=== PATIENT | male | born 1975 | race Caucasian/White ===

== ENCOUNTER 2016-08-04 22:08 | Emergency (ER) | payer BC, OTHER ==
[2016-08-04] MEDS ORDERED: Ketorolac 60 MG/2 ML SDV IM ONE (22:34)
--- NOTE | 2016-08-04 22:44 | EDM.PDOC ---
ED UPPER BACK/NECK PAIN/INJURY - General Chief Complaint: Back Pain or Injury Stated Complaint: SORE THROAT & PULLED MUSCLE IN BACK Time Seen by Provider: 08/04/16 22:23 Source of Information: Reports: Patient History Limitations: Reports: No limitations - History of Present Illness INITIAL COMMENTS - FREE TEXT/NARRATIVE: Patient states that his left upper back pain has been ongoing for the past 4-5 months. He denies trauma or injury to the back. 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 The pain is made worse by lifting and is relieved by rest. Onset is with twisting activities. He denies numbness or tingling in his upper extremity. The patient is also c/o a dry scratchy sore throat. This has been going on for 3 days. He has clear drainage from his nose for the past few days as well with a dry cough. He denies fever, chills, SOB, and CP. Symptom Onset Date: 03/06/16 Timing/Duration: Reports: Intermittent Location: Reports: upper Quality: Reports: Ache, Sharp, Stabbing Severity: mild Place of Occurrence: work Improves with: Reports: Rest Associated Symptoms: Reports: Denies symptoms Other Treatments REAL ESTATE ATTORNEY: None - Related Data Allergies/ADRs: Allergies Allergy/AdvReac Type Severity Reaction Status Date / Time No Known Drug Allergies Allergy Other Verified 07/06/15 21:12 Home Meds: Home Meds Lisinopril [Lisinopril] 20 mg PO DAILY 07/27/13 [History] OXcarbazepine [Oxcarbazepine] 600 mg PO BID 07/27/13 [History] Phenytoin Sodium Extended [Dilantin] 200 mg PO BEDTIME 07/27/13 [History] atorvaSTATin Calcium [Atorvastatin Calcium] 20 mg PO DAILY 07/27/13 [History] tiZANidine [Zanaflex] 4 mg PO Q6H PRN #40 tablet MDD 4 tablets/ 16mg 08/04/16 [ Rx] Past Medical History Cardiovascular History: Reports: High cholesterol, Hypertension Genitourinary History: Reports: Renal calculus Neurological History: Reports: Seizure, Other (see below) Other Neuro History: small brain tumor right tenriism area. - Past Surgical History Neurological Surgical History: Reports: Other (see below) Other Neurological Surgeries/Procedures: right craineotomy. Musculoskeletal Surgical History: Reports: Other (see below) Other Musculoskeletal Surgeries/Procedures:: ACL knee repair Social & Family History - Tobacco Use Smoking Status *Q: Never Smoker - Alcohol Use Days Per Week of Alcohol Use: 2 Number of Drinks Per Day: 2 Total Drinks Per Week: 4 - Recreational Drug Use Recreational Drug Use: No ED ROS GENERAL - Review of Systems Review Of Systems: ROS reveals no pertinent complaints other than HPI. Constitutional: Reports: no symptoms HEENT: Reports: Throat pain, Other (clear nasal drainage) Respiratory: Reports: no symptoms Cardiovascular: Reports: No symptoms Endocrine: Reports: no symptoms GI/Abdominal: Reports: No symptoms : Reports: no symptoms Musculoskeletal: Reports: back pain, muscle pain Skin: Reports: no symptoms Neurological: Reports: no symptoms Psychiatric: Reports: No symptoms Hematologic/Lymphatic: Reports: no symptoms Immunologic: Reports: no symptoms ED EXAM, UPPER BACK/NECK PAIN - Physical Exam Exam: See Below Exam Limited By: No limitations General Appearance: alert, WD/WN, no apparent distress Ears Exam: normal external exam, normal canal, hearing grossly normal, normal TMs Nose Exam: normal inspection, normal mucousa, no blood, clear rhinorrhea Throat/Mouth Exam: Normal inspection, Normal lips, Normal teeth, Normal gums, Normal oropharynx, Normal voice, No airway compromise Head Exam: atraumatic, normocephalic Neck Exam: non-tender, full range of motion, normal alignment, normal inspection Cardiovascular/Respiratory: regular rate, rhythm GI/Abdominal: normal bowel sounds, soft, non tender Extremities: normal inspection, normal range of motion, non-tender, no pedal edema, normal capillary refill Neurologic: no motor/sensory deficits, alert, normal mood/affect, oriented x 3 DTR: 2+: bicep (R), bicep (L), tricep (R), tricep (L) Psychiatric: normal affect, normal mood Skin Exam: Normal color, Warm/dry Lymphatic: no adenopathy Course - Orders/Labs/Meds Orders: Active Orders 24 hr Category Date Time Status Orphenadrine [Norflex] Med 08/04/16 22:45 Ordered 60 mg IM Q12H Medication Orders Orphenadrine Citrate (Norflex) 60 mg IM Q12H JERMAIN Meds: Medications Generic Name Dose Route Start Last Admin Trade Name Freq PRN Reason Stop Dose Admin Orphenadrine Citrate 60 mg 08/04/16 22:45 Norflex IM Q12H JERMAIN Discontinued Medications Generic Name Dose Route Start Last Admin Trade Name Bjornq PRN Reason Stop Dose Admin Ketorolac Tromethamine 60 mg 08/04/16 22:34 Toradol IM 08/04/16 22:35 ONETIME ONE Departure - Departure Time of Disposition: 23:00 Disposition: Home, Self-Care 01 Condition: good Clinical Impression: Upper back pain on left side Prescriptions: tiZANidine [Zanaflex] 4 mg PO Q6H PRN #40 tablet MDD 4 tablets/ 16mg PRN Reason: Muscle Spasm Instructions: Back Exercises, Thoracic Strain, [id number] Referrals: Clarita Inman [employer]INE [employer]TER [Primary Care Provider] - Additional Instructions: Please follow up with your primary care provider for discussion and referral to physical therapy for your chronic upper back pain. - My Orders Last 24 Hours: My Active Orders 08/04/16 22:45 Orphenadrine [Norflex] 60 mg IM Q12H - Assessment/Plan Last 24 Hours: My Active Orders 08/04/16 22:45 Orphenadrine [Norflex] 60 mg IM Q12H Assessment:: Left upper back pain Plan: Tizanidine for muscle relaxation as stated on prescription instructions. Follow up with primary care provider for referral to physical therapy.
[2016-08-05 00:18] VITALS: BP 128/88
== END 2016-08-04 23:09 | disposition home or self-care (01) ==
LOC: VM.ED 22:08
DX: M54.6 Pain in thoracic spine (principal); E78.00 Pure hypercholesterolemia, unspecified; I10 Essential (primary) hypertension; Z79.899 Other long term (current) drug therapy
CPT/HCPCS: 96372; 99283; J1885; J2360

== ENCOUNTER 2017-06-23 12:01 | Emergency (ER) | payer OTHER ==
[2017-06-23] MEDS ORDERED: Sodium Chloride 0.9% 10 ML Syringe FLUSH PRN (12:07)
--- NOTE | 2017-06-23 12:21 | EDM.PDOC ---
ED HPI GENERAL MEDICAL PROBLEM - General Chief Complaint: Syncope Stated Complaint: Syncope; Possible Seizure Time Seen by Provider: 06/23/17 12:02 Source of Information: Reports: Patient, EMS Notes Reviewed, RN, RN Notes Reviewed History Limitations: Reports: No Limitations - History of Present Illness INITIAL COMMENTS - FREE TEXT/NARRATIVE: Patient is brought to the emergency room at [facility] via EMS after he had a syncopal episode while he was eating dinner at work today. The patient does have a history of seizures. The patient's last seizure was over a year ago. The patient states that he forgot to take his morning medication today. It is unclear whether the patient had a seizure or not this morning. According to EMS the patient was found slumped over where he was sitting eating dinner. The patient denies any pain. No headache. The patient denies any dizziness. The patient states that he remembers most of what happened. The patient denies any chest pain. No shortness of breath. The patient denies any dizziness. No numbness tingling or paresthesia of any extremity. Patient is taking Dilantin and Trileptal daily for seizures. He is s/p right temporal craniotomy for tumor resection on 05/08/[address] Fahad Ashley. 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 Onset: Today, Sudden Onset Date: 06/23/17 Onset Time: 11:40 - Related Data Allergies Allergy/AdvReac Type Severity Reaction Status Date / Time No Known Drug Allergies Allergy Other Verified 06/23/17 12:46 Home Meds: Home Meds Lisinopril [Lisinopril] 20 mg PO DAILY 07/27/13 [History] OXcarbazepine [Oxcarbazepine] 600 mg PO BID 07/27/13 [History] Phenytoin Sodium Extended [Dilantin] 200 mg PO BEDTIME 07/27/13 [History] atorvaSTATin Calcium [Atorvastatin Calcium] 20 mg PO DAILY 07/27/13 [History] Past Medical History Cardiovascular History: Reports: High Cholesterol, Hypertension Genitourinary History: Reports: Renal Calculus Neurological History: Reports: Seizure, Other (See Below) Other Neuro History: small brain tumor right muslim area. - Past Surgical History Neurological Surgical History: Reports: Other (See Below) Musculoskeletal Surgical History: Reports: Other (See Below) Social & Family History - Tobacco Use Smoking Status *Q: Never Smoker - Alcohol Use Days Per Week of Alcohol Use: 2 Number of Drinks Per Day: 2 Total Drinks Per Week: 4 - Recreational Drug Use Recreational Drug Use: No ED ROS GENERAL - Review of Systems Review Of Systems: See Below Constitutional: Denies: Fever, Chills, Weakness Respiratory: Denies: Shortness of Breath, Cough Cardiovascular: Denies: Chest Pain, Palpitations GI/Abdominal: Denies: Abdominal Pain, Nausea, Vomiting Skin: Reports: No Symptoms Neurological: Reports: No Symptoms, Syncope. Denies: Confusion, Dizziness, Headache, Numbness, Paresthesia, Tingling - Physical Exam Exam: See Below Exam Limited By: No Limitations General Appearance: Alert, No Apparent Distress, Obese Eye Exam: Bilateral Eye: EOMI, Normal Inspection, PERRL Head Exam: Atraumatic, Normocephalic Neck: Supple Respiratory/Chest: No Respiratory Distress, Lungs Clear, Normal Breath Sounds Cardiovascular: Normal Peripheral Pulses, Regular Rate, Rhythm GI/Abdominal: Normal Bowel Sounds, Soft, Non-Tender Neuro Exam (Abbreviated): Alert, Oriented, Normal Cognition, No Motor/Sensory Deficits Skin Exam: Warm, Dry, Intact, Normal Color EKG INTERPRETATION EKG Date: 06/23/17 Time: 12:14 Rhythm: NSR Rate (Beats/Min): 75 [place]: Normal P-Wave: Present QRS: Normal ST-T: Normal QT: Normal ID/PQ Interval: 0.16 Comparison: NA - No Prior EKG EKG Interpretation Comments: 1. Sinus Rhythm 2. Probable inferior IA, indeterminate age with posterior extension Course - Vital Signs Last Recorded V/S: Last Vital Signs Temp 35.5 C 06/23/17 12:01 Pulse 73 06/23/17 12:01 Resp 16 06/23/17 12:01 BP 134/84 06/23/17 12:01 Pulse Ox 95 06/23/17 12:01 - Orders/Labs/Meds Orders: Active Orders 24 hr Category Date Time Status EKG 12 Lead [EKG Documentation Completion] [RC] STAT Care 06/23/17 12:08 Active Head wo Cont [CT] Stat Exams 06/23/17 12:07 Taken DRUG SCREEN, URINE [URCHEM] Stat Lab 06/23/17 12:09 Uncollected OXCARBAZEPINE METABOLITE [REF] Stat Lab 06/23/17 13:06 Received UA W/MICROSCOPIC [URIN] Stat Lab 06/23/17 12:09 Uncollected Sodium Chloride 0.9% [Saline Flush] Med 06/23/17 12:07 Active 10 ml FLUSH ASDIRECTED PRN Peripheral IV Insertion Adult [OM.PC] Routine Oth 06/23/17 12:07 Ordered Medication Orders Sodium Chloride (Saline Flush) 10 ml FLUSH ASDIRECTED PRN PRN Reason: Keep Vein Open Labs: Laboratory Tests 06/23/17 06/23/17 Range/Units 12:19 12:19 WBC 4.5 (4.0-10.0) x10^3/uL RBC 4.70 (4.5-6.0) x10^6/uL Hgb 14.5 (14.0-18.0) g/dL Hct 44.1 (40.0-52.0) % MCV 93.8 H (78.0-93.0) fL MCH 30.9 (26.0-32.0) pg MCHC 32.9 (32.0-36.0) g/dL RDW Coeff of [place] 13.1 (10.0-15.0) % Plt Count 151 (130-400) x10^3/uL Neut % (Auto) 59.3 (50.0-80.0) % Lymph % (Auto) 33.2 (25.0-50.0) % [place] % (Auto) 6.9 (2.0-11.0) % Eos % (Auto) 0.4 (0.0-4.0) % Baso % (Auto) 0.2 (0.2-1.2) % Sodium 140 (136-145) mmol/L Potassium 3.8 (3.5-5.1) mmol/L Chloride 103 (98-107) mmol/L Carbon Dioxide 28 (21-32) mmol/L BUN 17 (7-18) mg/dL Creatinine 0.9 (0.70-1.30) mg/dL Est Cr Clr Drug Dosing 104.50 mL/min Estimated GFR (MDRD) > 60 Glucose 127 H (74-106) mg/dL Calcium 8.4 L (8.5-10.1) mg/dL Magnesium 1.6 L (1.8-2.4) mg/dL Creatine Kinase 168 (39-308) U/L Creatine Kinase Index 1.5 (0.0-4.0) % CK-MB (CK-2) 2.6 (0.0-3.6) ng/mL Troponin I < 0.017 (<=0.056) ng/mL Phenytoin 2 L (10-20) ug/mL Meds: Medications Generic Name Dose Route Start Last Admin Trade Name Freq PRN Reason Stop Dose Admin Sodium Chloride 10 ml 06/23/17 12:07 Saline Flush FLUSH ASDIRECTED PRN Keep Vein Open - Radiology Interpretation Free Text/Narrative:: CT Head w/o contrast: Interval right craniotomy with presumed postsurgical changes in the right temporal lobe; no definite acute findings. See scanned report in EMR CT Results Date: 06/23/17 CT Results Time: 12:49 Departure - Departure Time of Disposition: 13:17 Disposition: Home, Self-Care 01 Condition: Good Clinical Impression: Seizure disorder, S/P craniotomy Syncope Qualifiers: Syncope type: unspecified Qualified Code(s): R55 - Syncope and collapse - Discharge Information Instructions: Syncope, [id number], Epilepsy Referrals: Clarita Inman [employer]IL[employer] [Primary Care Provider] - Forms: ED Department Discharge Additional Instructions: 1. Stay well hydrated and rest today 2. Continue taking your home medications the same 3. Have family stay with your today/tomorrow 4. Keep your appointment with Neurology tomorrow 5. Call with any questions/concerns - Problem List Review Problem List Initiated/Reviewed/Updated: Yes - My Orders Last 24 Hours: My Active Orders 06/23/17 12:07 Head wo Cont [CT] Stat Sodium Chloride 0.9% [Saline Flush] 10 ml FLUSH ASDIRECTED PRN Peripheral IV Insertion Adult [OM.PC] Routine 06/23/17 12:08 EKG 12 Lead [EKG Documentation Completion] [RC] STAT 06/23/17 12:09 DRUG SCREEN, URINE [URCHEM] Stat UA W/MICROSCOPIC [URIN] Stat 06/23/17 13:06 OXCARBAZEPINE METABOLITE [REF] Stat - Assessment/Plan Last 24 Hours: My Active Orders 06/23/17 12:07 Head wo Cont [CT] Stat Sodium Chloride 0.9% [Saline Flush] 10 ml FLUSH ASDIRECTED PRN Peripheral IV Insertion Adult [OM.PC] Routine 06/23/17 12:08 EKG 12 Lead [EKG Documentation Completion] [RC] STAT 06/23/17 12:09 DRUG SCREEN, URINE [URCHEM] Stat UA W/MICROSCOPIC [URIN] Stat 06/23/17 13:06 OXCARBAZEPINE METABOLITE [REF] Stat Plan: Labs and CT scan discussed with patient. Offered observation admission overnight , but patient declined. Patient would like to go home. He states his brother will stay with home overnight and take him to his Neurology appt tomorrow at [facility].
[2017-06-23 12:34] VITALS: BP 134/84
[2017-06-23 12:55] LABS: CHLORIDE,CL 103 mmol/L (98-107); SODIUM,NA 140 mmol/L (136-145)
== END 2017-06-23 13:40 | disposition home or self-care (01) ==
LOC: VM.ED 12:01
DX: G40.909 Epilepsy, unspecified, not intractable, without status epilepticus (principal); I10 Essential (primary) hypertension; Z98.890 Other specified postprocedural states; E78.00 Pure hypercholesterolemia, unspecified; Z79.899 Other long term (current) drug therapy
CPT/HCPCS: 36415; 70450; 80048; 80183; 80185; 82550; 82553; 83735; 84484; 85025; 93005; 99285

== ENCOUNTER 2019-11-27 06:54 | Emergency (ER) | payer OTHER ==
[2019-11-27 06:58] VITALS: BP 131/95; PULSE 82
--- NOTE | 2019-11-28 02:22 | EDM.PDOC ---
ED HPI GENERAL MEDICAL PROBLEM - General Chief Complaint: Respiratory Problem Stated Complaint: short of breath Time Seen by Provider: 11/27/19 07:05 Source of Information: Reports: Patient History Limitations: Reports: No Limitations - History of Present Illness INITIAL COMMENTS - FREE TEXT/NARRATIVE: Pt. presents to ER with concerns of covid 19. Pt. states that he has been ex periencing very mild intermittent episodes of shortness of breath. He has had a mild cough. His primary complaint is that of sore throat. Denies any recent travel. Denies any chest pain. He is not short of breath when seen in ER. No nausea, vomiting, or diarrhea. No abdominal pain. Onset Date: 11/27/19 Location: Reports: Neck, Chest, Generalized - Related Data Allergies Allergy/AdvReac Type Severity Reaction Status Date / Time No Known Drug Allergies Allergy Other Verified 11/27/19 06:55 Home Meds: Home Meds Lisinopril 20 mg PO DAILY 07/27/13 [History] OXcarbazepine [Oxcarbazepine] 600 mg PO BID 07/27/13 [History] Phenytoin Sodium Extended [Dilantin] 200 mg PO BEDTIME 07/27/13 [History] atorvaSTATin Calcium [Atorvastatin Calcium] 20 mg PO DAILY 07/27/13 [History] Past Medical History Cardiovascular History: Reports: High Cholesterol, Hypertension Genitourinary History: Reports: Renal Calculus Neurological History: Reports: Seizure, Other (See Below) Other Neuro History: small brain tumor right mormonism area. - Past Surgical History Neurological Surgical History: Reports: Other (See Below) Musculoskeletal Surgical History: Reports: Other (See Below) Social & Family History - Tobacco Use Smoking Status *Q: Never Smoker ED ROS GENERAL - Review of Systems Review Of Systems: See Below Constitutional: Denies: Fever, Chills, Malaise, Weakness, Fatigue, Night Sweats, Diaphoresis HEENT: Reports: Throat Pain. Denies: Ear Pain, Nosebleed, Rhinitis, Sinus Problem, Vertigo, Vision Change Respiratory: Reports: Shortness of Breath Cardiovascular: Reports: No Symptoms Endocrine: Reports: No Symptoms GI/Abdominal: Reports: No Symptoms : Reports: No Symptoms Musculoskeletal: Reports: No Symptoms Skin: Reports: No Symptoms Neurological: Reports: No Symptoms Psychiatric: Reports: No Symptoms Hematologic/Lymphatic: Reports: No Symptoms Immunologic: Reports: No Symptoms ED EXAM, GENERAL - Physical Exam Exam: See Below Exam Limited By: No Limitations General Appearance: Alert, WD/WN, No Apparent Distress Eye Exam: Bilateral Eye: EOMI, Normal Fundi, Normal Inspection, PERRL Ears: Normal External Exam, Normal Canal, Hearing Grossly Normal, Normal TMs Ear Exam: Bilateral Ear: Auricle Normal, Canal Normal, TM normal Nose: Normal Inspection, Normal Mucosa, No Blood Throat/Mouth: Normal Inspection, Normal Lips, Normal Teeth, Normal Gums, Normal Oropharynx, Normal Voice, No Airway Compromise Head: Atraumatic, Normocephalic Neck: Normal Inspection, Supple, Non-Tender, Full Range of Motion Respiratory/Chest: No Respiratory Distress, Lungs Clear, Normal Breath Sounds, No Accessory Muscle Use, Chest Non-Tender Cardiovascular: Normal Peripheral Pulses, Regular Rate, Rhythm, No Edema, No Gallop, No JVD, No Rub Peripheral Pulses: 4+: Radial (L) GI/Abdominal: Normal Bowel Sounds, Soft, No Distention, No Mass (Male) Exam: Deferred Rectal (Males) Exam: Deferred Neurological: Alert, Oriented, CN II-XII Intact, Normal Cognition, Normal Reflexes, No Motor/Sensory Deficits Psychiatric: Normal Affect, Normal Mood Skin Exam: Warm, Dry, Intact Course - Vital Signs Last Recorded V/S: Last Vital Signs Temp 36.2 C 11/27/19 06:56 Pulse 82 11/27/19 06:56 Resp 18 11/27/19 06:56 BP 131/95 H 11/27/19 06:56 Pulse Ox 99 11/27/19 06:56 - Orders/Labs/Meds Orders: Active Orders 24 hr Category Date Time Status CULTURE STREP A CONFIRMATION [RM] Stat Lab 11/27/19 07:25 Results STREP SCRN A RAPID W CULT CONF [RM] Stat Lab 11/27/19 07:25 Results Labs: Laboratory Tests 11/27/19 Range/Units 07:31 SARS-CoV-2 RNA (RT-PCR) Negative (NEGATIVE) Departure - Departure Time of Disposition: 07:50 Disposition: Home, Self-Care 01 Clinical Impression: URI (upper respiratory infection) - Discharge Information Instructions: Shortness of Breath, Adult, [id number] Referrals: Guillermina Weber DO [Primary Care Provider] - Forms: ED Department Discharge Additional Instructions: Home to rest. Try to stay out of the humidity today. Recheck in clinic in 7-10 days sooner if getting worse or not gradually improvin g. Return to ER if you have worsening throat tightness or trouble breathing. Sepsis Event Note (ED) - Evaluation Sepsis Screening Result: No Definite Risk - My Orders Last 24 Hours: My Active Orders 11/27/19 07:25 CULTURE STREP A CONFIRMATION [RM] Stat STREP SCRN A RAPID W CULT CONF [RM] Stat - Assessment/Plan Last 24 Hours: My Active Orders 11/27/19 07:25 CULTURE STREP A CONFIRMATION [RM] Stat STREP SCRN A RAPID W CULT CONF [RM] Stat Plan: Home to rest. Try to stay out of the humidity today. Recheck in clinic in 7-10 days sooner if getting worse or not gradually improving. Return to ER if you have worsening throat tightness or trouble breathing.
== END 2019-11-27 07:50 | disposition home or self-care (01) ==
LOC: VM.ED 06:54
DX: J06.9 Acute upper respiratory infection, unspecified (principal); I10 Essential (primary) hypertension; E78.00 Pure hypercholesterolemia, unspecified; Z20.828 Contact with and (suspected) exposure to other viral communicable diseases; Z79.899 Other long term (current) drug therapy
CPT/HCPCS: 87081; 87880-QW; 99283-GF; 99284; U0002

== ENCOUNTER 2020-08-09 05:35 | Emergency (ER) | payer OTHER ==
[2020-08-09] MEDS ORDERED: LORazepam 1 MG Tab PO ONE (06:13)
[2020-08-09 06:42] LABS: BARBITURATE SCREEN,URINE NEGATIVE (NEGATIVE); BENZODIAZEPINES SCREEN,URINE NEGATIVE (NEGATIVE); EDDP,URINE SCREEN NEGATIVE (NEGATIVE); METHAMPHETAMINE SCREEN, URINE NEGATIVE (NEGATIVE); TCA SCREEN,URINE NEGATIVE (NEGATIVE); THC SCREEN,URINE 50 NG/ML NEGATIVE (NEGATIVE)
[2020-08-09 06:51] LABS: CHLORIDE,CL 106 mmol/L (98-107); SODIUM,NA 142 mmol/L (136-145)
[2020-08-09 06:57] LABS: ANION GAP 11.8 mmol/L (5-15)
[2020-08-09 07:29] VITALS: BP 137/92; PULSE 67
--- NOTE | 2020-08-09 07:58 | EDM.PDOC ---
ED HPI GENERAL MEDICAL PROBLEM - General Chief Complaint: General Stated Complaint: Not feeling well, fatigued Time Seen by Provider: 08/09/20 05:40 Source of Information: Reports: Patient History Limitations: Reports: No Limitations - History of Present Illness INITIAL COMMENTS - FREE TEXT/NARRATIVE: Patient comes emergency department today with complaints of feeling funny. This patient the last couple of days has been asymptomatic. As he got up and went to work he was sit in his car and he just felt a "funny" sensation throughout his body. He really cannot explain to me what the sensation is. It is like there is maybe some tingling to his hands or may be some warmness to his extremities that is waxing and waning on its own. He relates himself that the symptoms are very vague. He has no headache visual acuity changes diplopia. No weakness dizziness lightheadedness. No other paresthesias of his upper or lower extremities. No change in the functionality of his upper or lower extremities. No syncope. No fever no chills. No chest pain no shortness of breath or difficulty breathing. No cough or congestion. No abdominal pain nausea or vomiting. No hematuria dysuria or urinary frequency. No black or tarry stools. He has had no change in his medications. He has been eating normally. No loss of taste or smell. No difficulty breathing. No sinus congestion or throat pain. No difficulty with his hearing. Just relates that he feels funny. NO COVID exposure no COVID symptoms. - Related Data Allergies Allergy/AdvReac Type Severity Reaction Status Date / Time No Known Drug Allergies Allergy Other Verified 08/09/20 05:53 Home Meds: Home Meds OXcarbazepine [Oxcarbazepine] 600 mg PO BID 07/27/13 [History] Phenytoin Sodium Extended [Dilantin] 200 mg PO BEDTIME 07/27/13 [History] LORazepam [Ativan] 0.5 mg PO BID PRN #6 tablet 08/09/20 [Rx] Past Medical History Cardiovascular History: Reports: High Cholesterol, Hypertension Genitourinary History: Reports: Renal Calculus Neurological History: Reports: Seizure, Other (See Below) Other Neuro History: small brain tumor right [place] area. - Past Surgical History Neurological Surgical History: Reports: Other (See Below) Other Neurological Surgeries/Procedures: benign tumor removed from R side of head Musculoskeletal Surgical History: Reports: Other (See Below) Other Musculoskeletal Surgeries/Procedures:: R ACL Social & Family History - Tobacco Use Tobacco Use Status *Q: Unknown Ever Used Tobacco ED ROS GENERAL - Review of Systems Review Of Systems: Comprehensive ROS is negative, except as noted in HPI. ED EXAM, GENERAL - Physical Exam Exam: See Below Free Text/Narrative:: Immediately when I enter the room it is evident to me that he is anxious. He is looking about the room. His eyes are darting around the room. He is constantly fidgeting and moving his arms and his hands. He is looking about the room with an anxious demeanor. Exam Limited By: No Limitations General Appearance: Alert, WD/WN, Anxious Eye Exam: Bilateral Eye: EOMI, PERRL Ears: Normal External Exam, Normal TMs Nose: Normal Inspection, Normal Mucosa, No Blood Throat/Mouth: Normal Inspection, Normal Lips, Normal Teeth, Normal Gums, Normal Oropharynx, Normal Voice, No Airway Compromise Head: Atraumatic, Normocephalic Neck: Normal Inspection, Supple, Non-Tender, Lymphadenopathy (L) Respiratory/Chest: No Respiratory Distress, Lungs Clear, Normal Breath Sounds, No Accessory Muscle Use, Chest Non-Tender Cardiovascular: Normal Peripheral Pulses, Regular Rate, Rhythm, No Murmur Peripheral Pulses: 2+: Radial (L), Radial (R), Posterior Tibial (L), Posterior Tibial (R), Dorsalis Pedis (L), Dorsalis Pedis (R) GI/Abdominal: Normal Bowel Sounds, Soft, Non-Tender (Male) Exam: Deferred Rectal (Males) Exam: Deferred Back Exam: Normal Inspection, Full Range of Motion Extremities: Normal Inspection, Normal Range of Motion, Non-Tender, No Pedal Edema, Normal Capillary Refill Neurological: Alert, Oriented, CN II-XII Intact, Normal Cognition, Normal Gait, Normal Reflexes, No Motor/Sensory Deficits Psychiatric: Anxious, Other (See above) Skin Exam: Warm, Dry, Intact, Normal Color, No Rash Course - Vital Signs Last Recorded V/S: Last Vital Signs Temp 97.7 F 08/09/20 05:35 Pulse 67 08/09/20 07:00 Resp 16 08/09/20 07:00 BP 137/92 H 08/09/20 07:00 Pulse Ox 98 03/18/21 05:35 - Orders/Labs/Meds Orders: Active Orders 24 hr Category Date Time Status OXCARBAZEPINE [REF] Stat Lab 08/09/20 06:26 Received PHENYTOIN,FREE AND TOTAL,SERUM [REF] Stat Lab 08/09/20 06:26 Received Labs: Laboratory Tests 08/09/20 08/09/20 08/09/20 Range/Units 06:16 06:16 06:26 WBC 4.6 (4.0-10.0) x10^3/uL RBC 4.92 (4.5-6.0) x10^6/uL Hgb 15.5 (14.0-18.0) g/dL Hct 45.6 (40.0-52.0) % MCV 92.7 (78.0-93.0) fL MCH 31.5 (26.0-32.0) pg MCHC 34.0 (32.0-36.0) g/dL RDW Coeff of [place] 12.9 (10.0-15.0) % Plt Count 150 (130-400) x10^3/uL Neut % (Auto) 51.2 (50.0-80.0) % Lymph % (Auto) 38.6 (25.0-50.0) % [place] % (Auto) 8.7 (2.0-11.0) % Eos % (Auto) 1.1 (0.0-4.0) % Baso % (Auto) 0.4 (0.2-1.2) % Sodium (136-145) mmol/L Potassium (3.5-5.1) mmol/L Chloride (98-107) mmol/L Carbon Dioxide (21-32) mmol/L Anion Gap (5-15) mmol/L BUN (7-18) mg/dL Creatinine (0.70-1.30) mg/dL Est Cr Clr Drug Dosing mL/min Estimated GFR (MDRD) Glucose (74-106) mg/dL Calcium (8.5-10.1) mg/dL Corrected Calcium (8.5-10.1) mg/dL Total Bilirubin (0.2-1.0) mg/dL AST (15-37) U/L ALT (16-63) U/L Alkaline Phosphatase (46-116) U/L Total Protein (6.4-8.2) g/dL Albumin (3.4-5.0) g/dL Globulin Albumin/Globulin Ratio Urine Color Yellow (YELLOW) Urine Appearance Clear (CLEAR) Urine pH 6.0 (5.0-8.0) Ur Specific [place] >=1.030 Urine Protein Negative (NEGATIVE) mg/dL Urine Glucose (UA) Negative (NEGATIVE) mg/dL Urine Ketones Negative (NEGATIVE) mg/dL Urine Occult Blood Negative (NEGATIVE) Urine Nitrite Negative (NEGATIVE) Urine Bilirubin Negative (NEGATIVE) Urine Urobilinogen 0.2 (0.2) EU/dL Ur Leukocyte Esterase Negative (NEGATIVE) Urine Opiates Screen Negative (NEAGTIVE) Ur Buprenorphine Scrn Negative (NEGATIVE) Ur Oxycodone Screen Negative (NEGATIVE) Ur EDDP (Meth Metab) Negative (NEGATIVE) Urine Methadone Screen Negative (NEGATIVE) Ur Barbiturates Screen Negative (NEGATIVE) Ur Tricyclics Screen Negative (NEGATIVE) Ur Phencyclidine Scrn Negative (NEGATIVE) Ur Amphetamine Screen Negative (NEGATIVE) U Methamphetamines Scrn Negative (NEGATIVE) Urine MDMA Screen Negative (NEGATIVE) U Benzodiazepines Scrn Negative (NEGATIVE) U Cocaine Metab Screen Negative (NEGATIVE) U Marijuana (THC) Screen Negative (NEGATIVE) Ethyl Alcohol (0-3) mg/dL 08/09/ Range/Units 06:26 WBC (4.0-10.0) x10^3/uL RBC (4.5-6.0) x10^6/uL Hgb (14.0-18.0) g/dL Hct (40.0-52.0) % MCV (78.0-93.0) fL MCH (26.0-32.0) pg MCHC (32.0-36.0) g/dL RDW Coeff of [place] (10.0-15.0) % Plt Count (130-400) x10^3/uL Neut % (Auto) (50.0-80.0) % Lymph % (Auto) (25.0-50.0) % [place] % (Auto) (2.0-11.0) % Eos % (Auto) (0.0-4.0) % Baso % (Auto) (0.2-1.2) % Sodium 142 (136-145) mmol/L Potassium 3.8 (3.5-5.1) mmol/L Chloride 106 (98-107) mmol/L Carbon Dioxide 28 (21-32) mmol/L Anion Gap 11.8 (5-15) mmol/L BUN 18 (7-18) mg/dL Creatinine 1.0 (0.70-1.30) mg/dL Est Cr Clr Drug Dosing 97.33 mL/min Estimated GFR (MDRD) > 60 Glucose 130 H (74-106) mg/dL Calcium 8.5 (8.5-10.1) mg/dL Corrected Calcium 8.82 (8.5-10.1) mg/dL Total Bilirubin 0.3 (0.2-1.0) mg/dL AST 20 (15-37) U/L ALT 37 (16-63) U/L Alkaline Phosphatase 91 (46-116) U/L Total Protein 7.0 (6.4-8.2) g/dL Albumin 3.6 (3.4-5.0) g/dL Globulin 3.4 Albumin/Globulin Ratio 1.06 Urine Color (YELLOW) Urine Appearance (CLEAR) Urine pH (5.0-8.0) Ur Specific [place] Urine Protein (NEGATIVE) mg/dL Urine Glucose (UA) (NEGATIVE) mg/dL Urine Ketones (NEGATIVE) mg/dL Urine Occult Blood (NEGATIVE) Urine Nitrite (NEGATIVE) Urine Bilirubin (NEGATIVE) Urine Urobilinogen (0.2) EU/dL Ur Leukocyte Esterase (NEGATIVE) Urine Opiates Screen (NEAGTIVE) Ur Buprenorphine Scrn (NEGATIVE) Ur Oxycodone Screen (NEGATIVE) Ur EDDP (Meth Metab) (NEGATIVE) Urine Methadone Screen (NEGATIVE) Ur Barbiturates Screen (NEGATIVE) Ur Tricyclics Screen (NEGATIVE) Ur Phencyclidine Scrn (NEGATIVE) Ur Amphetamine Screen (NEGATIVE) U Methamphetamines Scrn (NEGATIVE) Urine MDMA Screen (NEGATIVE) U Benzodiazepines Scrn (NEGATIVE) U Cocaine Metab Screen (NEGATIVE) U Marijuana (THC) Screen (NEGATIVE) Ethyl Alcohol < 3 (0-3) mg/dL Meds: Medications Discontinued Medications Generic Name Dose Route Start Last Admin Trade Name Freq PRN Reason Stop Dose Admin Lorazepam 1 mg 08/09/20 06:13 08/09/20 06:20 Lorazepam 1 Mg Tab PO 08/09/20 06:14 1 mg ONETIME ONE Administration - Re-Assessments/Exams Free Text/Narrative Re-Assessment/Exam: 08/09/20 Lorazepam 1 mg p.o. Laboratory evaluation shows a normal CBC. CMP with a mild elevation of his glucose of 130 otherwise normal. Urinalysis is negative. Urine drug screen is negative as well as alcohol. To the lorazepam as above his symptoms completely resolved. He was resting comfortably on the cot. He feels back to baseline. His work-up is really unremarkable and negative. His symptoms are very vague and nonspecific but he is clearly not in distress. He does feel much better after the lorazepam administration. His anxious demeanor has resolved. He is unsure if he has had a history of anxiety but it kind of makes sense to him as he has had quite a bit more on his plate especially at work and personally. We will discharge him home with a short course of lorazepam if he has continued symptoms or problems he should recheck with his primary care provider. Instructions as below are explained to the patient he was comfortable with this plan and her questions were answered. Departure - Departure Time of Disposition: 07:53 Disposition: Home, Self-Care 01 Clinical Impression: Anxiety - Discharge Information Prescriptions: LORazepam [Ativan] 0.5 mg PO BID PRN #6 tablet PRN Reason: Anxiety Instructions: Managing Anxiety, Adult Referrals: PCP,None [Primary Care Provider] - Forms: ED Department Discharge Additional Instructions: Home rest today. Continue previous medications. If symptoms return of anxiety, Lorazepam 1 tablet twice daily as needed for acute episodes of anxiety or nervousness. Caution sedation. Do not take and operate a vehicle. Do not drink alcohol with this medication. Rx to [facility]. Return if new or worsening symptoms. Follow up with PCP for recheck in a week. Sepsis Event Note (ED) - Evaluation Sepsis Screening Result: No Definite Risk - Focused Exam Vital Signs: Vital Signs Temp Pulse Resp BP Pulse Ox 08/09/20 07:00 67 16 137/92 H 08/09/20 05:35 97.7 F 72 16 140/106 H 98 - My Orders Last 24 Hours: My Active Orders 08/09/20 06:26 OXCARBAZEPINE [REF] Stat PHENYTOIN,FREE AND TOTAL,SERUM [REF] Stat - Assessment/Plan Last 24 Hours: My Active Orders 08/09/20 06:26 OXCARBAZEPINE [REF] Stat PHENYTOIN,FREE AND TOTAL,SERUM [REF] Stat
== END 2020-08-09 08:10 | disposition home or self-care (01) ==
LOC: VM.ED 05:35
DX: F41.9 Anxiety disorder, unspecified (principal); I10 Essential (primary) hypertension
CPT/HCPCS: 80053; 80183; 80305-QW; 80307; 81003; 85025; 99283; 99284; A9270-GY

== ENCOUNTER 2021-05-14 09:17 | Emergency (ER) | payer OTHER ==
[2021-05-14 09:35] VITALS: PULSE 79
[2021-05-14] MEDS ORDERED: Diphtheria,Pertussis(Acell),Tetanus Vaccine 0.5 ML Syringe IM ONE (09:45)
--- NOTE | 2021-05-14 09:54 | EDM.PDOC ---
ED HPI GENERAL MEDICAL PROBLEM - General Chief Complaint: Laceration Stated Complaint: L MIDDLE FINGER INJURY Time Seen by Provider: 05/14/21 09:40 Source of Information: Reports: Patient History Limitations: Reports: No Limitations - History of Present Illness INITIAL COMMENTS - FREE TEXT/NARRATIVE: Patient presents to the ED for fingernail laceration. He was cutting at work and accidentally cut the fingernail of 3rd finger of left hand. No cutting through the nailbed. No other skin lacerations, perpendicular laceration to the nail in relation to the nailbed. sensation intact. unsure of tetanus. Is right handed Onset: Today Left Finger-Middle Pain Score (Numeric/FACES): 5 - Related Data Allergies Allergy/AdvReac Type Severity Reaction Status Date / Time No Known Drug Allergies Allergy Other Verified 05/14/21 09:37 Home Meds: Home Meds OXcarbazepine [Oxcarbazepine] 600 mg PO BID 07/27/13 [History] Phenytoin Sodium Extended [Dilantin] 200 mg PO BEDTIME 07/27/13 [History] LORazepam [Ativan] 0.5 mg PO BID PRN #6 tablet 08/09/20 [Rx] Past Medical History Cardiovascular History: Reports: High Cholesterol, Hypertension Genitourinary History: Reports: Renal Calculus Neurological History: Reports: Seizure, Other (See Below) Other Neuro History: small brain tumor right [place] area. - Past Surgical History Neurological Surgical History: Reports: Other (See Below) Other Neurological Surgeries/Procedures: benign tumor removed from R side of head Musculoskeletal Surgical History: Reports: Other (See Below) Other Musculoskeletal Surgeries/Procedures:: R ACL Social & Family History - Tobacco Use Tobacco Use Status *Q: Never Tobacco User - Recreational Drug Use Recreational Drug Use: No ED ROS GENERAL - Review of Systems Review Of Systems: Comprehensive ROS is negative, except as noted in HPI. Constitutional: Reports: No Symptoms. Denies: Fever, Chills HEENT: Reports: No Symptoms Respiratory: Reports: No Symptoms. Denies: Shortness of Breath, Cough Cardiovascular: Reports: No Symptoms. Denies: Chest Pain Endocrine: Reports: No Symptoms. Denies: Fatigue GI/Abdominal: Reports: No Symptoms. Denies: Abdominal Pain, Diarrhea : Reports: No Symptoms Musculoskeletal: Reports: No Symptoms. Denies: Neck Pain Skin: Reports: Wound ED EXAM, SKIN/RASH Exam: See Below Exam Limited By: No Limitations General Appearance: Alert, No Apparent Distress Eye Exam: Bilateral Eye: EOMI, Normal Inspection, PERRL Ears: Normal External Exam Nose: Normal Inspection Throat/Mouth: Normal Inspection, Normal Lips, Normal Voice, No Airway Compromise Head: Atraumatic Neck: Normal Inspection Respiratory/Chest: No Respiratory Distress, Lungs Clear Cardiovascular: Regular Rate, Rhythm Neurological: Alert, Oriented, Normal Cognition, No Motor/Sensory Deficits Location, Skin: Upper Extremity, Left (3rd fingernail, superficial laceration to the nail not involving the nail bed. no deeper laceration, not able to open the wound or make it gape open. no bleeding. sensation intact distally, normal rom) ED SKIN PROCEDURES - Laceration/Wound Repair Digit - 3rd (Middle) Appearance: Superficial, Linear Distal NVT: Neuro & Vascular Intact, No Tendon Injury Skin Prep: Chlorhexidine (Hibiciens) Exploration/Debridement/Repair: Wound Explored, Other (laceration isperpendicular to the nail bed. No movement of the nail, no deep tissue laceration. small bud at the cuticle, no nailbed laceration) Closed with: Dermabond Lac/Wound length In cm: 2.5 Sterile Dressing Applied: Nurse Tetanus Status Addressed: Yes (given) Complications: No Course - Vital Signs Last Recorded V/S: Last Vital Signs Temp 37.3 C 05/14/21 09:25 Pulse 79 05/14/21 09:25 Resp 18 05/14/21 09:25 BP 172/103 H 05/14/21 09:25 Pulse Ox 97 05/14/21 09:25 - Orders/Labs/Meds Orders: Active Orders 24 hr Category Date Time Status Vaccine to be Administered/Admin Charge [RC] ASDIRECTED Care 05/14/21 09:45 Ordered Meds: Medications Discontinued Medications Generic Name Dose Route Start Last Admin Trade Name Freq PRN Reason Stop Dose Admin Diphtheria/Tetanus/Acell Pertussis 0.5 ml 05/14/21 09:45 05/14/21 09:52 Diphtheria,Pertussis(Acell),Tetanus Vaccine 0.5 Ml Syringe IM 05/14/21 09:46 0.5 ml .ONCE ONE Administration Lidocaine HCl 5 ml 05/14/21 09:38 05/14/21 09:47 Lidocaine 1% 5 Ml Sdv INJECT 05/14/21 09:39 Not Given ONETIME ONE Departure - Departure Time of Disposition: 09:49 Disposition: Home, Self-Care 01 Condition: Good Clinical Impression: Laceration of finger with damage to nail - Discharge Information *PRESCRIPTION DRUG MONITORING PROGRAM REVIEWED*: Not Applicable *COPY OF PRESCRIPTION DRUG MONITORING REPORT IN PATIENT HAZEL: Not Applicable Instructions: Sutures, Chandrika, or Adhesive Wound Closure, [id number] Referrals: PCP,None [Primary Care Provider] - Forms: ED Department Discharge, ED Return to Work/School Form Additional Instructions: do not apply antibiotic ointment to the glue, it will reabsorb and peel off. You should keep this cover to avoid catching the nail on anything. Keep the nail short. You can apply clear nail [place] to the area as it is healing to keep it sealed. return for signs of infection. You were given a tetanus immunization. This is good for 10 years. Make note for records. Sepsis Event Note (ED) - Focused Exam Vital Signs: Vital Signs Temp Pulse Resp BP Pulse Ox 05/14/21 09:25 37.3 C 79 18 172/103 H 97 - My Orders Last 24 Hours: My Active Orders 05/14/21 09:45 Vaccine to be Administered/Admin Charge [RC] ASDIRECTED - Assessment/Plan Last 24 Hours: My Active Orders 05/14/21 09:45 Vaccine to be Administered/Admin Charge [RC] ASDIRECTED
[2021-05-14 10:09] VITALS: BP 158/88
== END 2021-05-14 10:01 | disposition home or self-care (01) ==
LOC: VM.ED 09:17
DX: S61.313A Laceration without foreign body of left middle finger with damage to nail, initial encounter (principal); I10 Essential (primary) hypertension; E78.00 Pure hypercholesterolemia, unspecified; Z79.899 Other long term (current) drug therapy; Z23 Encounter for immunization; W26.8XXA Contact with other sharp object(s), not elsewhere classified, initial encounter
CPT/HCPCS: 12001; 90471; 90715; 99282-25

== ENCOUNTER 2021-06-27 12:07 | Emergency (ER) | payer OTHER ==
[2021-06-27 13:16] VITALS: BP 139/108; PULSE 87
[2021-06-27 14:09] LABS: CORONAVIRUS COVID-19 NAA POSITIVE (NEGATIVE)
== END 2021-06-27 14:28 | disposition home or self-care (01) ==
LOC: VM.ED 12:07
DX: U07.1 COVID-19 (principal); E78.00 Pure hypercholesterolemia, unspecified; I10 Essential (primary) hypertension
CPT/HCPCS: 0240U; 99283

== ENCOUNTER 2023-11-28 08:55 | Emergency (ER) | payer OTHER ==
[2023-11-28 09:11] VITALS: PULSE 82
[2023-11-28 09:51] VITALS: BP 156/108
== END 2023-11-28 09:45 | disposition home or self-care (01) ==
LOC: VM.ED 08:55
DX: I10 Essential (primary) hypertension (principal); E78.00 Pure hypercholesterolemia, unspecified; Z79.899 Other long term (current) drug therapy; Z86.16 Personal history of COVID-19
CPT/HCPCS: 82947; 99284

== ENCOUNTER 2023-11-28 17:58 | Emergency (ER) | payer OTHER ==
[2023-11-28 18:23] VITALS: BP 131/88; PULSE 73
[2023-11-28 18:28] LABS: BASOPHILS PERCENT AUTO 0.2 % (0.2-1.2); EOSINOPHILS ABSOLUTE AUTO 0.1 x10^3/uL (0.0-0.5); HEMATOCRIT 45.3 % (40.0-52.0); IMMATURE GRAN ABSOLUTE AUTO 0.01 x10^3/uL (0.00-0.07); LYMPHOCYTES ABSOLUTE AUTO 1.9 x10^3/uL (1.0-4.8); MEAN CORPUSCULAR HEMOGLOBIN 31.1 pg (26.0-32.0); MEAN CORPUSCULAR HGB CONC 35.3 g/dL (32.0-36.0); MONOCYTES ABSOLUTE AUTO 0.3 x10^3/uL (0.0-0.8); MONOCYTES PERCENT AUTO 6.8 % (2.0-11.0); NEUTROPHILS ABSOLUTE AUTO 2.5 x10^3/uL (1.8-7.7); NEUTROPHILS PERCENT AUTO 51.8 % (50.0-80.0); PLATELET COUNT,PLT 150 x10^3/uL (130-400); RED BLOOD CELL COUNT 5.15 x10^6/uL (4.5-6.0); WHITE BLOOD CELL COUNT,WBC 4.9 x10^3/uL (4.0-10.0)
[2023-11-28 18:49] LABS: A/G RATIO 1.21; ALANINE AMINOTRANSFERASE,ALT 33 U/L (16-63); ALBUMIN 4.1 g/dL (3.4-5.0); ALKALINE PHOSPHATASE 85 U/L (46-116); ASPARTATE AMNIOTRANSFERASE,AST 24 U/L (15-37); BILIRUBIN TOTAL 0.5 mg/dL (0.2-1.0); BLOOD UREA NITROGEN,BUN 8 mg/dL (7-18); CALCIUM 9.1 mg/dL (8.5-10.1); CARBON DIOXIDE,CO2 29 mmol/L (21-32); CHLORIDE,CL 97 mmol/L (98-107); GLUCOSE RANDOM 134 mg/dL (70-99); MAGNESIUM 1.9 mg/dL (1.8-2.4); POTASSIUM,K 4.1 mmol/L (3.5-5.1); PROTEIN TOTAL,TP 7.5 g/dL (6.4-8.2); SODIUM,NA 135 mmol/L (136-145)
[2023-11-28 18:50] LABS: ANION GAP 13.1 mmol/L (5-15); ESTIMATED GFR 93 mL/min (>=60)
== END 2023-11-28 19:03 | disposition home or self-care (01) ==
LOC: VM.ED 17:58
DX: I10 Essential (primary) hypertension (principal); E78.00 Pure hypercholesterolemia, unspecified; Z79.899 Other long term (current) drug therapy; Z86.16 Personal history of COVID-19
CPT/HCPCS: 36415; 80053; 83735; 84484; 85025; 93005; 93010; 99284; 99285